=== PATIENT | female | born 1985 | race Caucasian/White ===

== ENCOUNTER 2023-08-11 19:57 | Inpatient (IN) | payer OTHER ==
[2023-08-11] MEDS ORDERED: hydrALAZINE 20 MG/ML VIAL ONE (21:29)
[2023-08-11] MEDS ORDERED: Tranexamic Acid 1,000 MG/10 ML VIAL IVP PRN (21:31)
[2023-08-11] MEDS ORDERED: Methylergonovine 0.2 MG/ML VIAL IM PRN (21:31)
[2023-08-11] MEDS ORDERED: Diphenoxylate HCl/Atropine Tablet PO PRN (21:31)
[2023-08-11] MEDS ORDERED: Carboprost 250 MCG/ML AMP IM PRN (21:31)
[2023-08-11] MEDS ORDERED: Lidocaine 1% (PF) 30 ML VIAL SC PRN (21:31)
[2023-08-11] MEDS ORDERED: hydrALAZINE 20 MG/ML VIAL SLOW IVP PRN ×3 (21:31→23:17)
[2023-08-11] MEDS ORDERED: Calcium Gluc 4.6 MEQ/10 ML (100 MG/ML) SLOW IVP PRN ×2 (21:31→23:17)
[2023-08-11] MEDS ORDERED: Promethazine HCl 25 MG/ML VIAL IM PRN (21:31)
[2023-08-11] MEDS ORDERED: Acetaminophen 500 MG TAB PO PRN (21:31)
[2023-08-11] MEDS ORDERED: Ondansetron PF 4 MG/2 ML Vial IVP PRN (21:31)
[2023-08-11] MEDS ORDERED: Lorazepam 2 MG/ML VIAL SLOW IVP PRN ×2 (21:31→23:17)
[2023-08-11] MEDS ORDERED: Misoprostol 200 MCG TAB PR PRN (21:31)
[2023-08-11] MEDS ORDERED: Magnesium Sulfate 20 gm/500 ml 20 GM/500 ML BAG ONE (21:38)
[2023-08-11] MEDS ORDERED: Labetalol HCl 100 MG/20 ML VIAL SLOW IVP PRN ×3 (21:39→23:17)
[2023-08-11] MEDS ORDERED: Oxytocin 30 units/NS 500 ML 500 ML IV SCH ×2 (21:45)
[2023-08-11] MEDS: Magnesium Sulfate 20 gm/500 ml 20 GM/500 ML BAG IVPB SCH (21:45)
[2023-08-11] MEDS ORDERED: Penicillin G Potassium 5 MILL.UNITS in Sodium Chloride 0.9% 100 ML IVPB SCH (21:45)
[2023-08-11] MEDS ORDERED: Penicillin G 2.5 MILL.units 2.5 MILL.UNITS in Premix 1 BAG IVPB SCH (21:45)
[2023-08-11 21:48] LABS: #Eosinphils 0.1 10x3/uL (0.0-0.5); #Monocytes 0.5 10x3/uL (0.0-1.1); #Neutrophils 5.7 10x3/uL (1.5-8.4); %Basophils 0.1 % (0.0-2.0); %Eosinophils 0.6 % (0.0-6.0); %Lymphocytes 22.8 % (18.0-47.0); %Monocytes 6.2 % (0.0-10.0); %Neutrophils 69.7 % (40.0-75.0); Hematocrit 36.9 % (34.9-44.5); Hemoglobin 12.9 g/dL (12.0-15.5); Mean Corpuscular Hemoglobin 29.7 pg (27.0-33.0); Mean Platelet Volume 9.7 fl (7.4-10.4); Platelet Count 203 10x3/uL (150-450); RBC Distribution Width 13.6 % (11.5-14.5); Red Blood Cell (RBC) Count 4.34 10x6/uL (3.90-5.03); White Blood Cell (WBC) Count 8.2 10x3/uL (3.5-10.5)
[2023-08-11 22:02] LABS: ALT (SGPT) 9 U/L (8-55); AST (SGOT) 14 U/L (5-34); Albumin 3.3 g/dL (3.5-5.0); Alkaline Phosphatase 116 U/L (40-110); Anion Gap 18 mmol/L (10-20); BUN (Urea Nitrogen) 15 mg/dL (7.0-18.7); Bilirubin, Total 0.2 mg/dL (0.2-1.2); Calc. Creatinine Clearance 0 mL/min (70-130); Calcium 8.8 mg/dL (7.8-10.44); Carbon Dioxide 16 mmol/L (22-29); Chloride 106 mmol/L (98-107); Estimated GFR 115; Globulin 2.9 g/dL (2.4-3.5); Glucose 109 mg/dL (70-105); Potassium 4.6 mmol/L (3.5-5.1); Protein, Total 6.2 g/dL (6.0-8.3); Sodium 135 mmol/L (136-145)
[2023-08-11] MEDS ORDERED: HumaLOG 300 UNITS/3 ML VIAL SC PRN ×2 (22:16)
[2023-08-11] MEDS ORDERED: Glucagon 1 MG/ML KIT IM PRN (22:16)
[2023-08-11] MEDS ORDERED: Dextrose 50% Abboject 50 ML SYRINGE SLOW IVP PRN (22:16)
[2023-08-11] MEDS ORDERED: Dextrose 5% in Water 1,000 ML IV PRN (22:16)
[2023-08-11 22:22] VITALS: BMI 37.8
[2023-08-11 22:22] LABS: HBSAg Index 0.17 S/CO (0-0.99); Hep B Surf Ag - L&D Non-Reactive S/CO (NonReactive)
[2023-08-11 22:32] LABS: Syphilis Antibody Nonreactive (Nonreactive); Syphilis Antibody Index 0.03 S/CO (<1.00 Non-Reactive)
[2023-08-11] MEDS: Misoprostol 100 MCG TAB VAG SCH (22:57)
[2023-08-12 00:34] LABS: Creatinine, Urine 172.7 mg/dL (47-110)
[2023-08-12] MEDS ORDERED: Acetaminophen 500 MG TAB PO SCH (02:15)
[2023-08-12] MEDS ORDERED: fentaNYL/Ropivacaine Epidural 100 ML ONE (07:57)
[2023-08-12] MEDS ORDERED: Sodium Bicarbonate 2.5 MEQ/5 ML VIAL ONE (08:46)
[2023-08-12] MEDS ORDERED: Acetaminophen 325 MG TAB PO PRN (09:27)
[2023-08-12] MEDS ORDERED: ePHEDrine Sulfate 50 MG/10 ML VIAL SLOW IVP PRN (09:27)
[2023-08-12] MEDS ORDERED: Moisturizing Cream (Eucerin) 113 GM JAR TOP PRN (09:27)
[2023-08-12] MEDS ORDERED: Ondansetron PF 4 MG/2 ML Vial IVP PRN (09:27)
[2023-08-12] MEDS ORDERED: Promethazine HCl 25 MG/ML VIAL IM PRN (09:27)
[2023-08-12] MEDS ORDERED: Naloxone HCl 0.4 mg/ml Vial IVP PRN ×2 (09:27)
[2023-08-12] MEDS ORDERED: Lactated Ringer's 500 ML IV PRN (09:27)
[2023-08-12] MEDS ORDERED: Communication Order-Pharmacy FS SCH (09:30)
[2023-08-12] MEDS ORDERED: fentaNYL 2 mcg/Ropivacaine 0.2% Epidural 100 ML CADD EPIDURAL SCH (09:30)
[2023-08-12] MEDS: diphenhydrAMINE 50 MG/ML VIAL IVP PRN ×3 (10:31→22:38)
[2023-08-12] MEDS ORDERED: Boostrix 0.5 ML (Tdap) VIAL (>/=7 yrs of age) IM ONE (15:26)
[2023-08-12] MEDS ORDERED: Lanolin Ointment 7 GM TUBE TOP PRN (15:26)
[2023-08-12] MEDS ORDERED: diphenhydrAMINE 25 MG CAP PO PRN (15:26)
[2023-08-12] MEDS ORDERED: Bisacodyl 10 MG SUPP PR PRN (15:26)
[2023-08-12] MEDS ORDERED: traMADol HCl 50 MG TAB PO PRN (15:26)
[2023-08-12] MEDS ORDERED: Preparation H Ointment 28 GM TUBE PR PRN (15:26)
[2023-08-12] MEDS ORDERED: hydrALAZINE 20 MG/ML VIAL SLOW IVP PRN (15:26)
[2023-08-12] MEDS ORDERED: Milk Of Magnesia 30 ML UDCUP PO PRN (15:26)
[2023-08-12] MEDS ORDERED: Benzocaine-Menthol 82.5 ML CAN TOP PRN (15:26)
[2023-08-12] MEDS ORDERED: Bupivacaine 0.25% HCL 30 ML VIAL ONE (19:31)
[2023-08-13] MEDS: Magnesium Sulfate 20 gm/500 ml 20 GM/500 ML BAG IVPB SCH (01:27)
[2023-08-13] MEDS: diphenhydrAMINE 50 MG/ML VIAL IVP PRN (01:33)
[2023-08-13] MEDS: Misoprostol 100 MCG TAB VAG SCH ×3 (07:41→08:58)
[2023-08-13] MEDS: Docusate 100 MG CAP PO SCH ×2 (07:42→08:13)
[2023-08-13] MEDS: Prenatal Vitamin 1 TAB PO SCH (08:13)
[2023-08-14] MEDS: Docusate 100 MG CAP PO SCH ×2 (01:32→08:29)
[2023-08-14] MEDS: Prenatal Vitamin 1 TAB PO SCH (08:29)
[2023-08-14 11:16] VITALS: TEMP 98.7
[2023-08-14 15:49] VITALS: BP 134/67
== END 2023-08-14 17:45 | disposition home or self-care (01) | DRG 806 ==
LOC: CSHLD/OP 19:57 → CSHLD 21:41 → CSHPP 08-13 05:40
PROVIDERS: ADMIT Obstetrics & Gynecology; ATTEND Obstetrics & Gynecology
PROC: 10E0XZZ Delivery of Products of Conception, External Approach (ICD-10-PCS; principal; 2023-08-12)
PROC: 0HQ9XZZ Repair Perineum Skin, External Approach (ICD-10-PCS; 2023-08-12)
DX: O36.8130 Decreased fetal movements, third trimester, not applicable or unspecified (principal); O98.52 Other viral diseases complicating childbirth; Z37.0 Single live birth; O24.424 Gestational diabetes mellitus in childbirth, insulin controlled; B00.9 Herpesviral infection, unspecified; O70.0 First degree perineal laceration during delivery; O14.14 Severe pre-eclampsia complicating childbirth; Z79.84 Long term (current) use of oral hypoglycemic drugs; Z3A.36 36 weeks gestation of pregnancy; Z79.4 Long term (current) use of insulin; Z79.899 Other long term (current) drug therapy
CPT/HCPCS: 36415; 36416; 51702; 76819; 80053; 82570; 84156; 85025; 86780; 86850; 86900; 86901; 87340; 99285; J0360; J1200; J2405; J3475; S0020

== ENCOUNTER 2025-04-14 10:02 | Inpatient (IN) | payer OTHER ==
[2025-04-14 10:52] VITALS: BMI 36.7
[2025-04-14] MEDS ORDERED: Lidocaine 1% (PF) 30 ML VIAL SC PRN (11:35)
[2025-04-14] MEDS ORDERED: Ibuprofen 800 MG TAB PO PRN (11:35)
[2025-04-14] MEDS ORDERED: Acetaminophen 500 MG TAB PO PRN (11:35)
[2025-04-14] MEDS ORDERED: Diphenoxylate HCl/Atropine Tablet PO PRN ×2 (11:35)
[2025-04-14] MEDS ORDERED: Carboprost 250 MCG/ML AMP IM PRN (11:35)
[2025-04-14] MEDS ORDERED: Calcium Gluc 4.6 MEQ/10 ML (100 MG/ML) SLOW IVP PRN (11:35)
[2025-04-14] MEDS ORDERED: Tranexamic Acid 1,000 MG/10 ML VIAL IVP PRN (11:35)
[2025-04-14] MEDS ORDERED: hydrALAZINE 20 MG/ML VIAL SLOW IVP PRN (11:35)
[2025-04-14] MEDS ORDERED: HYDROcodone/Acetaminophen 5/325 mg Tablet PO PRN ×2 (11:35)
[2025-04-14] MEDS ORDERED: Oxytocin 30 units/NS 500 ML 500 ML IV SCH ×2 (11:45)
[2025-04-14 11:57] LABS: Hematocrit 36.2 % (34.9-44.5); Hemoglobin 12.2 g/dL (12.0-15.5); Mean Corpuscular Hemoglobin 29.5 pg (27.0-33.0); Mean Corpuscular Volume 87.7 fL (81.6-98.3); Platelet Count 171 10x3/uL (150-450); Red Blood Cell (RBC) Count 4.13 10x6/uL (3.90-5.03); White Blood Cell (WBC) Count 6.64 10x3/uL (3.5-10.5)
[2025-04-14 12:29] LABS: ALT (SGPT) 10 U/L (Less than 34); AST (SGOT) 14 U/L (11-34); Albumin 3.0 g/dL (3.1-4.5); Alkaline Phosphatase 70 U/L (40-110); Anion Gap 15 mmol/L (10-20); BUN (Urea Nitrogen) 13 mg/dL (7.0-18.7); Bilirubin, Total 0.2 mg/dL (0.3-1.2); Calc. Creatinine Clearance 205 mL/min (70-130); Calcium 8.2 mg/dL (7.8-10.44); Carbon Dioxide 19 mmol/L (22-29); Chloride 105 mmol/L (98-107); Globulin 3.1 g/dL (2.4-3.5); Glucose 126 mg/dL (70-105); Potassium 4.2 mmol/L (3.5-5.1); Sodium 135 mmol/L (136-145)
[2025-04-14 12:45] LABS: Hep B Surf Ag - L&D Non-Reactive S/CO (NonReactive)
[2025-04-14 12:47] LABS: Syphilis Antibody Index 0.05 S/CO (<1.00 Non-Reactive)
[2025-04-14] MEDS ORDERED: Acetaminophen 325 MG TAB PO PRN (19:20)
[2025-04-14] MEDS ORDERED: Ondansetron PF 4 MG/2 ML Vial IVP PRN ×3 (19:20→22:09)
[2025-04-14] MEDS ORDERED: diphenhydrAMINE 50 MG/ML VIAL IVP PRN ×2 (19:20→22:09)
[2025-04-14] MEDS ORDERED: Communication Order-Pharmacy FS SCH ×2 (19:30→22:15)
[2025-04-14] MEDS ORDERED: fentaNYL 2 mcg/Ropivacaine 0.2% Epidural 100 ML CADD EPIDURAL SCH (19:30)
[2025-04-14] MEDS: fentaNYL/Ropivacaine Epidural 100 ML ONE (19:33)
[2025-04-14] MEDS ORDERED: Meperidine HCl/PF 25 MG (1 mL) VIAL SLOW IVP PRN (22:09)
[2025-04-14] MEDS ORDERED: HYDROmorphone 0.5 MG/0.5 ML SYRINGE SLOW IVP PRN (22:09)
[2025-04-14 22:11] LABS: Analyzer IN Cardio CS NICU; Critical Notified By: CP.PH; RapidComm Collect By CBN; pH (Cord, venous) 7.323 (7.250-7.350)
[2025-04-14 22:14] LABS: Analyzer IN Cardio CS NICU; Critical Notified By: CP.PH; RapidComm Collect By CBN
[2025-04-14] MEDS ORDERED: Ketorolac Tromethamine 30 MG (1 mL) VIAL IVP SCH (22:15)
[2025-04-14] MEDS: Ondansetron PF 4 MG/2 ML Vial IVP PRN (22:50)
[2025-04-15] MEDS ORDERED: Ketorolac Tromethamine 30 MG (1 mL) VIAL IVP PRN (00:30)
[2025-04-15] MEDS ORDERED: Simethicone Chewable 80 MG TAB PO PRN (00:30)
[2025-04-15] MEDS ORDERED: Lanolin Ointment 7 GM TUBE TOP PRN (00:30)
[2025-04-15] MEDS ORDERED: HYDROcodone/Acetaminophen 5/325 mg Tablet PO PRN (00:30)
[2025-04-15] MEDS ORDERED: hydrALAZINE 20 MG/ML VIAL SLOW IVP PRN (00:30)
[2025-04-15] MEDS: diphenhydrAMINE 25 MG CAP PO PRN (01:45)
[2025-04-15] MEDS: Acetaminophen 325 MG TAB PO PRN (05:16)
[2025-04-15] MEDS: Ondansetron PF 4 MG/2 ML Vial IVP PRN (05:16)
[2025-04-15 05:43] LABS: Hematocrit 34.9 % (34.9-44.5); Hemoglobin 11.7 g/dL (12.0-15.5); Mean Corpuscular Hemoglobin 29.5 pg (27.0-33.0); Mean Corpuscular Volume 88.1 fL (81.6-98.3); Platelet Count 155 10x3/uL (150-450); Red Blood Cell (RBC) Count 3.96 10x6/uL (3.90-5.03); White Blood Cell (WBC) Count 13.84 10x3/uL (3.5-10.5)
[2025-04-15] MEDS: Boostrix 0.5 ML (Tdap) VIAL (>/=7 yrs of age) IM ONE (08:11)
[2025-04-15] MEDS: CEFAZOLIN 2 GM VIAL ONE (08:51)
[2025-04-15] MEDS: Mineral Oil ENEMA PR SCH (08:52)
[2025-04-15] MEDS: Dexamethasone 10 MG/ML VIAL ONE (08:52)
[2025-04-15] MEDS: Lidocaine 2% MPF 10 ML AMP (For Epidural Use) ONE (08:52)
[2025-04-15] MEDS: Ondansetron PF 4 MG/2 ML Vial ONE (08:52)
[2025-04-15] MEDS: Famotidine/PF 20 mg/2ml Vial ONE (08:52)
[2025-04-15] MEDS: Erythromycin Base 0.5% Oint 1 GM TUBE ONE (08:52)
[2025-04-15] MEDS: Oxytocin 10 UNITS/ML VIAL ONE ×2 (08:53)
[2025-04-15] MEDS: Ferrous Sulfate 325 MG TAB PO SCH (09:19)
[2025-04-15] MEDS: Sertraline 100 MG TAB PO SCH (09:19)
[2025-04-15] MEDS: HYDROcodone/Acetaminophen 5/325 mg Tablet PO PRN (10:12)
[2025-04-16 08:42] VITALS: BP 135/74; TEMP 97.8
== END 2025-04-16 11:50 | disposition home or self-care (01) | DRG 788 ==
LOC: CSHLD 10:02 → CSHANTE 04-15 00:20
PROVIDERS: ADMIT Obstetrics & Gynecology; ATTEND Obstetrics & Gynecology
PROC: 3E033VJ Introduction of Other Hormone into Peripheral Vein, Percutaneous Approach (ICD-10-PCS; principal; 2025-04-14)
PROC: 10D00Z1 Extraction of Products of Conception, Low, Open Approach (ICD-10-PCS; 2025-04-14)
DX: O32.2XX0 Maternal care for transverse and oblique lie, not applicable or unspecified (principal); O24.429 Gestational diabetes mellitus in childbirth, unspecified control; O14.14 Severe pre-eclampsia complicating childbirth; Z37.0 Single live birth; O99.284 Endocrine, nutritional and metabolic diseases complicating childbirth; E03.9 Hypothyroidism, unspecified; Z79.82 Long term (current) use of aspirin; Z79.899 Other long term (current) drug therapy; Z88.8 Allergy status to other drugs, medicaments and biological substances
CPT/HCPCS: 36415; 51702; 80053; 82805; 85027; 86780; 86850; 86900; 86901; 87340; J1100; J1308; J2274; J2405; J2590; J3010

== ENCOUNTER 2025-06-02 09:20 | Outpatient (CLI) | payer OTHER | END 2025-06-02 09:21 | disposition home or self-care (01) | LOC: CSHMAMMO 09:20 | PROVIDERS: ATTEND Obstetrics & Gynecology | DX: N63.32 Unspecified lump in axillary tail of the left breast (principal) | CPT/HCPCS: 77066; G0279 ==